=== PATIENT | male | born 1965 | race African-American/Black ===

== ENCOUNTER 2021-08-15 10:53 | Emergency (ER) | payer OTHER ==
[2021-08-15 11:14] VITALS: BMI 34.4
[2021-08-15] MEDS ORDERED: LACTATED RINGERS SOLUTION 1000 ML INFUS.BAG IV ONE (11:33)
[2021-08-15] MEDS ORDERED: ALBUTEROL SO4 2.5/IPRATROPIUM 0.5 INH SOL 3 ML VIAL.NEB. NEB ONE ×2 (11:45→12:22)
[2021-08-15] MEDS ORDERED: ACETAMINOPHEN INJECTION 100 ML IVPB ONE (11:52)
[2021-08-15] MEDS ORDERED: ACETAMINOPHEN 1000 MG/100 ML BAG IVPB ONE (11:55)
[2021-08-15 14:19] LABS: BASO % 0.3 % (0-2.0); HEMATOCRIT 41.8 % (35.4-49); HEMOGLOBIN 13.9 GM/dL (11.7-16.9); LYMPH % 6.6 % (8-40); MCH 26.2 pg (25.7-33.7); MCHC 33.1 g/dl (32.0-35.9); MEAN CELL VOLUME 79.1 fl (80-96); MONO % 6.3 % (3.8-10.2); NEUT % 86.8 % (42.8-82.8); PLATELET COUNT 241 10^3/uL (134-434); RBC 5.29 M/mm3 (4.00-5.60); RDW 13.2 % (11.9-15.9); WHITE BLOOD COUNT 7.3 K/mm3 (4.0-10.0)
[2021-08-15 14:22] LABS: VENOUS BASE EXCESS 0.3 mmol/L (-2-2); VENOUS O2 SATURATION 81.6 % (70-80); VENOUS PCO2 52.5 mmHg (38-52); VENOUS PH 7.331 (7.310-7.410)
[2021-08-15 14:26] LABS: INR 1.21 (0.83-1.09)
[2021-08-15 14:29] LABS: ACTIVATED PTT 34.7 SECONDS (25.2-36.5)
[2021-08-15 14:37] LABS: CHLORIDE 96 mmol/L (98-107); SODIUM 135 mmol/L (136-145)
[2021-08-15 14:39] LABS: CALCIUM 9.4 mg/dL (8.5-10.1)
[2021-08-15 14:40] LABS: ALBUMIN 4.7 g/dl (3.4-5.0); ANION GAP 9 MMOL/L (8-16); BLOOD UREA NITROGEN 11.6 mg/dL (7-18); CO2 30 mmol/L (21-32); GLUCOSE,RANDOM 168 mg/dL (74-106)
[2021-08-15 14:43] LABS: CREATININE 1.3 mg/dL (0.55-1.3); SGOT/AST 15 U/L (15-37); SGPT/ALT 24 U/L (13-61)
[2021-08-15 14:45] LABS: TOT PROT 9.2 g/dl (6.4-8.2)
[2021-08-15 14:46] LABS: ALK PHOS 57 U/L (45-117)
[2021-08-15 15:14] VITALS: TEMP 102.9
[2021-08-15] MEDS ORDERED: BEBTELOVIMAB (EUA) 175 MG/2 ML VIAL IVPUSH ONE (15:30)
[2021-08-15 18:47] VITALS: BP 143/92; PULSE 97
== END 2021-08-15 20:02 | disposition home or self-care (01) ==
LOC: JER 10:53
PROC: 3E033GC Introduction of Other Therapeutic Substance into Peripheral Vein, Percutaneous Approach (ICD-10-PCS; principal; 2021-08-15)
PROC: 3E0F7GC Introduction of Other Therapeutic Substance into Respiratory Tract, Via Natural or Artificial Opening (ICD-10-PCS; 2021-08-15)
DX: U07.1 COVID-19 (principal)
CPT/HCPCS: 0241U-QW; 36415; 71045-TC-FY; 80053; 82550; 82553; 82803; 83605; 84484; 85025; 85610; 85730; 86850; 86900; 86901; 87040; 93005; 93010; 99285-25; Q0222